=== PATIENT | female | born 1975 | race Caucasian/White ===

== ENCOUNTER 2018-09-05 12:25 | Day surgery (SDC) | payer BC ==
[~2018-09-05] VITALS: Ht 157.5 cm; Wt 82.6 kg
[~2018-09-05 12:25] MED LIST: AMOX500C2 PO; LOSA50TA14 PO; MECL12.574 PO
[2018-09-05 13:24] VITALS: Ht 157.5 cm; Wt 82.6 kg
--- NOTE | 2018-09-05 13:31 | PREAC ---
Date/Time of Note Date/Time of Note DATE: 09/05/18 TIME: 13:29 Anesthesia Eval and Record Evaluation Time Pre-Procedure Interview DATE: 09/05/18 TIME: 13:29 Age 43 Sex female NPO: 8 hrs Preoperative diagnosis , dyspepsia, IBS Planned procedure EGD, colonoscopy Past Medical History Past Medical History: Includes Cardio: HTN Surgery & Anesthesia Issues No known issue Meds Anticoagulation: No Beta Jasmin within 24 hr: No Reason Beta Jasmin not given: Pt. not on B-Jasmin Active Scripts Meclizine Hcl* (Antivert*) 12.5 Mg Tab, 25 MG PO Q6H PRN for DIZZINESS, #20 TAB Prov:NICK GUSTAFSON MD 06/10/16 Amoxicillin* (Amoxicillin*) 500 Mg Cap, 500 MG PO TID for 7 Days, CAP Prov:NICK GUSTAFSON MD 06/10/16 Reported Medications Losartan Potassium* (Losartan Potassium*) 50 Mg Tablet, 50 MG PO DAILY, TAB 06/10/16 Meds reviewed: Yes Allergies Coded Allergies: meperidine (Verified Allergy, Severe, 06/10/16) morphine (Verified Allergy, Severe, 06/10/16) Allergies Reviewed: Yes Labs/Studies Labs Reviewed: Reviewed by anesthesiologist test: Negative Studies: ECG (n/a), CXR (n/a) Pre-procedure Exam Airway: Adequate mouth opening Mallampati: Mallampati I Teeth: Normal Lung: Normal Heart: Normal ASA Physical Status ASA physical status: 2 Emergency: None Planned Anesthetic General/MAC: MAC Planned Pain Management Parenteral pain med Pre-operative Attestations Prior to commencing anesthesia and surgery, the patient was re-evaluated, there was verification of: *The patient's identity *The results of appropriate recent lab work and preoperative vital signs *The above evaluation not changing prior to induction *Anesthetic plan, risk benefits, alternative and complications discussed with patient/family; questions answered; patient/family understands, accepts and wishes to proceed. JULIO SOTO MD Sep 05, 2018 13:31
[2018-09-05] MEDS ORDERED: PROPOFOL 20 ML ONE ×2 (14:26→15:00)
[2018-09-05] MEDS ORDERED: FENTAnyl 50 MCG/ML VIAL ONE ×2 (14:26→14:45)
[2018-09-05] MEDS ORDERED: HYDROmorphONE 1 MG/5 ML IV SYRINGE IV PRN (14:30)
[2018-09-05] MEDS ORDERED: ONDANSETRON 4 MG INJ IV PRN (14:30)
[2018-09-05 14:34] VITALS: BP 157/69
--- NOTE | 2018-09-05 15:00 | HPN ---
Date/Time of Note Date/Time of Note DATE: 09/05/18 TIME: 15:00 Interval H&P Admission Note Pt. seen H&P reviewed: No system changes BARRY LAI Sep 05, 2018 15:00
[2018-09-05 15:33] VITALS: BP 133/88; PULSE 112; RESP 15
--- NOTE | 2018-09-05 21:40 | PAC ---
Date/Time of Note Date/Time of Note DATE: 09/05/18 TIME: 21:39 Post-Anesthesia Notes Post-Anesthesia Note Last documented vital signs Vital Signs Date Temp Pulse Resp B/P (MAP) Pulse Ox O2 O2 Flow FiO2 Time Delivery Rate 09/05/18 98.2 112 15 133/88 98 Room Air 15:33 (103) Activity: WNL Respiratory function: WNL Cardiovascular function: WNL Mental status: Baseline Pain reasonably controlled: Yes Hydration appropriate: Yes Nausea/Vomiting absent: No JULIO SOTO MD Sep 05, 2018 21:40
== END 2018-09-05 16:35 | disposition home or self-care (01) ==
LOC: GIL 12:25
PROVIDERS: ATTEND Internal Medicine Gastroenterology
DX: R19.7 Diarrhea, unspecified (principal); K64.8 Other hemorrhoids; K44.9 Diaphragmatic hernia without obstruction or gangrene
CPT/HCPCS: 43239; 45380; 84703; 88305; 88312; J3010; Z7610